=== PATIENT | female | born 1990 | race American Indian/Alaskan Native ===

== ENCOUNTER 2019-02-18 18:12 | Emergency (ER) | payer SELFPAY ==
--- NOTE | 2019-02-18 18:50 | Event Note ---
ED Screening Note Date of service: 02/18/19 Time: 18:46 ED Screening Note: Pt complains of chest pain radiating down right arm x today denies heart hx states right lower leg pain and swelling intermittently This initial assessment/diagnostic orders/clinical plan/treatment(s) is/are subject to change based on patients health status, clinical progression and re- assessment by fellow clinical providers in the ED. Further treatment and workup at subsequent clinical providers discretion. Patient/guardian urged not to elope from the ED as their condition may be serious if not clinically assessed and managed. Initial orders include: labs CXR EKG US
--- NOTE | 2019-02-18 19:39 | XRay Report ---
CHEST 1 VIEW INDICATION: chest pain. COMPARISON: None. FINDINGS: Support devices: None. Heart: Within normal limits. Lungs/Pleura: No acute air space or interstitial disease. Additional findings: None. IMPRESSION: No acute abnormality. Signer Name: Tony Zee MD Signed: 02/18/2019 7:35 PM Workstation Name: [id number]
[2019-02-18 20:07] LABS: Basophils # (Auto) 0.1 K/mm3 (0.0-0.1); Eosinophils # (Auto) 0.2 K/mm3 (0.0-0.4); Eosinophils % (Auto) 3.9 % (0.0-4.3); Hematocrit 39.8 % (30.3-42.9); Hemoglobin 13.6 gm/dl (10.1-14.3); Mean Corpuscular HGB Conc 34 % (30-34); Mean Corpuscular Volume 92 fl (79-97); Monocytes # (Auto) 0.5 K/mm3 (0.0-0.8); Monocytes % (Auto) 8.9 % (0.0-7.3); Platelet Count 173 K/mm3 (140-440); Red Blood Count 4.34 M/mm3 (3.65-5.03); Red Cell Distribution Width 13.1 % (13.2-15.2)
[2019-02-18 20:29] LABS: Alanine Aminotransferase 9 units/L (7-56); Albumin 4.2 g/dL (3.9-5); BUN/Creatinine Ratio 17; Blood Urea Nitrogen 15 mg/dL (7-17); Calcium 9.4 mg/dL (8.4-10.2); Hemolysis Index 9
[2019-02-19] MEDS ORDERED: diazePAM 5 MG TAB PO ONE (00:50)
[2019-02-19] MEDS ORDERED: KETOROLAC 30 MG/1 ML INJ IM ONE (00:50)
[2019-02-19] MEDS ORDERED: predniSONE 20 MG TAB PO ONE (00:50)
--- NOTE | 2019-02-19 02:10 | Emergency Department Report ---
ED Chest Pain HPI - General Chief Complaint: Chest Pain Stated Complaint: CHEST PAIN Time Seen by Provider: 02/18/19 18:45 Source: patient, family Mode of arrival: Ambulatory Limitations: No Limitations - History of Present Illness Initial Comments: Patient is a 29-year-old -[place] female with a history of chronic anxiety presents to the ED with content of acute onset persistent right-sided chest wall pain with inspiration, activity intermittently for the last 1 week. Patient also complains of shortness of breath. Patient also complains of painful swollen erythematous nonfluctuant rashes in a parietal scalp after plaiting her hair week ago. Patient denies dizziness, headache, chest pain, shortness of breath, abdominal pain, nausea, vomiting, cough, dysuria, urinary frequency and urgency, sore throat, nasal and sinus congestion, fever and chills. MD Complaint: chest pain, other (pleuritic chest wall pain; painful scalp rashes) -: Sudden, week(s) (1) Onset: awoke with symptoms Pain Location: right chest Pain Radiation: none Severity: moderate Severity scale (0 -10): 5 Quality: tightness, aching, sharp Consistency: intermittent Improves With: nothing Worsens With: palpation, movement re: denies: nausea, vomting, diaphoresis, dyspnea, sense of impending doom Other Symptoms: cough. denies: fever, syncope, rash, acid taste in mouth, leg swelling, palpitations, burping, other Treatments Prior to Arrival: none - Related Data On Oral Contraceptives: No Previous Rx's Medication Instructions Recorded Last Taken Type Naproxen 500 mg PO Q12H PRN #24 tablet 02/19/19 Unknown Rx Sulfamethoxazole/Trimethoprim 1 each PO Q12H #20 tablet 02/19/19 Unknown Rx [Bactrim DS TAB] hydrOXYzine PAMOATE [Vistaril] 25 mg PO Q6HR PRN #30 capsule 02/19/19 Unknown Rx Allergies Allergy/AdvReac Type Severity Reaction Status Date / Time No Known Allergies Allergy Unverified 02/18/19 18:21 Heart Score - HEART Score History: Slightly suspicious EKG: Normal Age: < 45 Risk factors: No known risk factors Troponin: < normal limit HEART Score: 0 - Critical Actions Critical Actions: 0-3 pts:0.9-1.7%risk of adverse cardiac event.Candidate for discharge ED Review of Systems ROS: Stated complaint: CHEST PAIN Other details as noted in HPI Constitutional: denies: chills, fever Eyes: denies: eye pain, eye discharge, vision change ENT: denies: ear pain, throat pain Respiratory: shortness of breath. denies: cough, wheezing Cardiovascular: chest pain (pleuritic). denies: palpitations Endocrine: no symptoms reported Gastrointestinal: denies: abdominal pain, nausea, diarrhea Genitourinary: denies: urgency, dysuria, discharge Musculoskeletal: denies: back pain, joint swelling, arthralgia Skin: rash, other (swollen painful nonfluctuant rash on parietal scalp). denies: lesions Neurological: denies: headache, weakness, paresthesias Psychiatric: anxiety. denies: depression Hematological/Lymphatic: denies: easy bleeding, easy bruising ED Past Medical Hx - Past Medical History Previous Medical History?: Yes Hx Asthma: Yes - Surgical History Past Surgical History?: No - Social History Smoking Status: Never Smoker Substance Use Type: None - Medications Home Medications: Home Medications Medication Instructions Recorded Confirmed Last Taken Type Naproxen 500 mg PO Q12H PRN #24 tablet 02/19/19 Unknown Rx Sulfamethoxazole/Trimethoprim 1 each PO Q12H #20 tablet 02/19/19 Unknown Rx [Bactrim DS TAB] hydrOXYzine PAMOATE [Vistaril] 25 mg PO Q6HR PRN #30 capsule 02/19/19 Unknown Rx ED Physical Exam - General Limitations: No Limitations General appearance: alert, in no apparent distress - Head Head exam: Present: atraumatic, other (Palpable tenderness of parietal scalp due to erythematous nonfluctuant rashes) - Eye Eye exam: Present: normal appearance, PERRL, EOMI - ENT ENT exam: Present: normal exam, normal orophraynx, mucous membranes moist, TM's normal bilaterally, normal external ear exam - Neck Neck exam: Present: normal inspection, full ROM. Absent: tenderness, meningismus - Respiratory Respiratory exam: Present: normal lung sounds bilaterally, chest wall tenderness (palpable reproducible diffuse chest wall tenderness). Absent: respiratory distress, wheezes, rales, stridor, accessory muscle use, decreased breath sounds, prolonged expiratory - Cardiovascular Cardiovascular Exam: Present: regular rate, normal rhythm, normal heart sounds. Absent: bradycardia, tachycardia, systolic murmur, diastolic murmur, rubs, gallop - GI/Abdominal GI/Abdominal exam: Present: soft, normal bowel sounds. Absent: distended, tenderness, guarding, hyperactive bowel sounds - Extremities Exam Extremities exam: Present: normal inspection, full ROM, normal capillary refill - Back Exam Back exam: Present: normal inspection, full ROM. Absent: tenderness, muscle spasm, paraspinal tenderness - Neurological Exam Neurological exam: Present: alert, oriented X3, CN II-XII intact, normal gait, reflexes normal - Psychiatric Psychiatric exam: Present: normal affect, normal mood, anxious - Skin Skin exam: Present: warm, dry, intact, normal color, rash (mildly erythematous nonfluctuant maculopapular rashes on parietal scalp with localized tenderness) ED Course Vital Signs 02/19/19 01:00 Respiratory 16 Rate SUMEET score - Sumeet Score Age > 65: (0) No Aspirin use within the Past 7 Days: (0) No 3 or more CAD Risk Factors: (0) No 2 or more Angina events in past 24 hrs: (0) No Known CAD with more than 50% Stenosis: (0) No Elevated Cardiac Markers: (0) No ST Deviation Greater than 0.5mm: (0) No SUMEET Score: 0 ED Medical Decision Making - Lab Data Result diagrams: 02/18/19 19:36 02/18/19 19:36 - EKG Data EKG shows normal: sinus rhythm Rate: normal - EKG Data Interpretation: normal EKG 02/19/19 02:12 The EKG shows normal sinus rhythm with a ventricular rate of [address] or T-wave abnormalities. - Radiology Data Radiology results: report reviewed, image reviewed Chest x-ray shows no acute cardiopulmonary abnormalities or pneumonitis. - Medical Decision Making This is a 29-year-old female with a history of chronic anxiety who presented to the ED with acute onset persistent pleuritic chest wall pain for the last 1 week. Patient also complains of painful nonfluctuant rushes on her scalp after plating her hair 1 week ago. In the ED, patient is alert and oriented 3 and is not in distress. Lab test results were reviewed and are all nonactionable. Chest x-ray shows no acute cardiopulmonary abnormalities or pneumonitis. The EKG shows normal sinus rhythm with ventricular rate [address] or T-wave abnormalities. Patient was treated for pain in the ED and on reevaluation, patient's pain is well-controlled with medications. Patient was discharged home on pain medications and oral antibiotics for folliculitis of the scalp and patient was advised to follow-up with her primary care physician in 7-10 days for reevaluation or return to the ED immediately if symptoms get worse. - Differential Diagnosis chest wall pain; muscle strain; anxiety; folliculitis; costochondritis Critical care attestation.: If time is entered above; I have spent that time in minutes in the direct care of this critically ill patient, excluding procedure time. ED Disposition Clinical Impression: Pleuritic chest pain, Anxiety as acute reaction to exceptional stress, Acute folliculitis Disposition: TO HOME OR SELFCARE Is pt being admited?: No Does the pt Need Aspirin: No Condition: Stable Instructions: Chest Pain (ED), Costochondritis (ED), Folliculitis (ED) Additional Instructions: Take medications with food, drink plenty of fluids and follow-up with your primary care physician in 7-10 days for reevaluation. Return to the ED immediately Prescriptions: Sulfamethoxazole/Trimethoprim [Bactrim DS TAB] 1 each PO Q12H #20 tablet Naproxen 500 mg PO Q12H PRN #24 tablet PRN Reason: Pain , Severe (7-10) hydrOXYzine PAMOATE [Vistaril] 25 mg PO Q6HR PRN #30 capsule PRN Reason: Anxiety Referrals: [facility] [Outside] - 3-5 Days Time of Disposition: 02:08 Print Language: TURKISH
[2019-02-19 03:08] VITALS: BP 113/69
== END 2019-02-19 02:34 | disposition home or self-care (01) ==
LOC: ED 18:12
DX: L73.9 Follicular disorder, unspecified (principal); F41.8 Other specified anxiety disorders; F43.0 Acute stress reaction; R07.81 Pleurodynia; J45.909 Unspecified asthma, uncomplicated; Z79.899 Other long term (current) drug therapy
CPT/HCPCS: 36415; 71045; 80053; 84484; 85025; 93005; 93010; 96372; 99283; J1885; J7512